=== PATIENT | female | born 1935 | race Caucasian/White ===

== ENCOUNTER 2018-10-06 21:39 | Inpatient (IN) | payer MEDICARE, OTHER ==
[2018-10-06] MEDS ORDERED: IPRATROPIUM/ALBUTEROL 0.5-2.5 MG/3 ML AMPUL NEB ONE (21:50)
[2018-10-06] MEDS ORDERED: METHYLPREDNISOLONE INJ 125 MG/2 ML SDV ONE (21:53)
[2018-10-06] MEDS: MAGNESIUM SULFATE/D5W 1 GM/100 ML RTUPB IV SCH ×2 (22:00→22:24)
[2018-10-06] MEDS ORDERED: MAGNESIUM SULFATE/D5W 2 GM/200 ML RTUPB IV ONE (22:03)
[2018-10-06 22:19] LABS: VENOUS BLOOD BASE EXCESS 1.8 mmol/L; VENOUS BLOOD HCO3 30.2 mmol/L (20-32); VENOUS BLOOD PH 7.28 (7.30-7.42)
[2018-10-06 22:21] LABS: ABSOLUTE BASOPHILS # (AUTO) 0.1 10^3/uL (0.0-0.2); ABSOLUTE EOSINOPHILS # (AUTO) 0.9 10^3/uL (0.0-0.6); ABSOLUTE LYMPHOCYTES (AUTO) 0.9 10^3/uL (0.5-4.7); ABSOLUTE MONOCYTES (AUTO) 0.9 10^3/uL (0.1-1.4); ABSOLUTE NEUT (AUTO) 7.9 10^3/uL (1.7-8.2); BASOPHILS % (AUTO) 0.8 % (0-2); EOSINOPHILS % (AUTO) 8.5 % (0-6); HEMATOCRIT 37.9 % (36.0-47.0); HEMOGLOBIN 12.4 g/dL (12.0-15.5); LYMPHOCYTES % (AUTO) 8.8 % (13-45); MEAN CORPUSCULAR HEMOGLOBIN 27.9 pg (27.0-33.4); MEAN CORPUSCULAR HGB CONC 32.8 g/dL (32.0-36.0); MEAN CORPUSCULAR VOLUME 85 fl (80-97); MONOCYTES % (AUTO) 8.4 % (3-13); PLATELET COUNT 307 10^3/uL (150-450); RED BLOOD COUNT 4.45 10^6/uL (3.72-5.28); RED CELL DISTRIBUTION WIDTH 15.7 % (11.5-14.0); SEGMENTED NEUTROPHILS % (AUTO) 73.5 % (42-78); TOTAL CELLS COUNTED % (AUTO) 100 %; WHITE BLOOD COUNT 10.7 10^3/uL (4.0-10.5)
[2018-10-06 22:21] LABS: VENOUS BLOOD PCO2 66.2 mmHg (35-63)
[2018-10-06 22:28] LABS: PROTHROMBIN TIME 12.6 SEC (11.4-15.4)
[2018-10-06 22:37] LABS: ALANINE AMINOTRANSFERASE 32 U/L (9-52); ALBUMIN 4.5 g/dL (3.5-5.0); ALKALINE PHOSPHATASE 105 U/L (38-126); ANION GAP 5 (5-19); ASPARTATE AMINO TRANSFERASE 41 U/L (14-36); BILIRUBIN,DIRECT 0.4 mg/dL (0.0-0.4); BILIRUBIN,TOTAL 0.4 mg/dL (0.2-1.3); BLOOD UREA NITROGEN 35 mg/dL (7-20); CALCIUM 9.5 mg/dL (8.4-10.2); CARBON DIOXIDE 33 mmol/L (22-30); CHLORIDE 102 mmol/L (98-107); GLUCOSE 139 mg/dL (75-110); POTASSIUM 4.9 mmol/L (3.6-5.0); SODIUM 140.4 mmol/L (137-145); TOTAL PROTEIN 7.2 g/dL (6.3-8.2)
--- NOTE | 2018-10-06 22:38 | RADIOLOGY REPORT (SQ) ---
EXAM DESCRIPTION: XR CHEST 1 VIEW COMPLETED DATE/TME: 10/06/2018 22:06 CLINICAL HISTORY: 82 years, Female, sob COMPARISON: None. NUMBER OF VIEWS: 1 TECHNIQUE: Portable chest LIMITATIONS: None. FINDINGS: Heart size normal. Mild atheromatous change thoracic aorta. Underlying emphysema. Calcified granuloma in the left upper lobe/apex. Lungs otherwise clear. No pneumothorax IMPRESSION: Underlying emphysema. No acute cardiopulmonary process copyright 2010 [employer]- All Rights Reserved
[2018-10-06 22:49] LABS: NT PRO BNP 691 pg/mL (<450)
[2018-10-06 22:50] LABS: TROPONIN I < 0.012 ng/mL
[2018-10-06] MEDS ORDERED: DOXYCYCLINE HYCLATE INJ 100 MG VIAL IV ONE (23:06)
[2018-10-06] MEDS ORDERED: MAGNESIUM HYDROXIDE SUSP 30 ML UDCUP PO PRN (23:22)
[2018-10-06] MEDS ORDERED: ONDANSETRON HCL INJ/PF 4 MG/2 ML SDV IV PRN (23:22)
[2018-10-06] MEDS ORDERED: MAG HYDROX/AL HYDROX/SIMETH SUSP 30 ML UDCUP PO PRN (23:22)
[2018-10-06] MEDS ORDERED: ONDANSETRON 4 MG TAB.RAPDIS PO PRN (23:22)
--- NOTE | 2018-10-06 23:24 | ER Document Report ---
ED General - General Chief Complaint: Shortness Of Breath Stated Complaint: DIFFICULTY BREATHING Time Seen by Provider: 10/06/18 21:55 TRAVEL OUTSIDE OF THE [place] IN LAST 30 DAYS: No - HPI Patient complains to provider of: Shortness of breath Notes: Patient coming in for evaluation of shortness of breath. 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 Patient recently moved to the area to be with her family family states patient does have oxygen as needed however has had a oxygen concentrator on most of the day. Denies any fevers or chills states scant production of sputum, no recent antibiotics. Upon my evaluation patient has subcostal retractions stating that she is having difficulty breathing patient currently has a breathing treatment ongoing patient otherwise is able to speak in complete sentences denies any chest pain abdominal pain - Related Data Allergies/Adverse Reactions: No Known Allergies Allergy (Unverified 10/06/18 22:14) Past Medical History - Social History Smoking Status: Unknown if Ever Smoked Family History: Reviewed & Not Pertinent Review of Systems - Review of Systems Constitutional: No symptoms reported EENT: No symptoms reported Cardiovascular: No symptoms reported Respiratory: Cough, Short of breath, Wheezing Gastrointestinal: No symptoms reported Genitourinary: No symptoms reported Female Genitourinary: No symptoms reported Musculoskeletal: No symptoms reported Skin: No symptoms reported Hematologic/Lymphatic: No symptoms reported Neurological/Psychological: No symptoms reported -: Yes All other systems reviewed and negative Physical Exam - Vital signs Vitals: Temp Pulse Resp BP Pulse Ox 98 F 107 H 32 H 187/120 H 88 L 10/06/18 21:40 10/06/18 21:40 10/06/18 21:40 10/06/18 21:40 10/06/18 21:40 Interpretation: Normal - General General appearance: Appears well, Alert - HEENT Head: Normocephalic, Atraumatic Eyes: Normal Pupils: PERRL - Respiratory Respiratory status: Tachypnea Chest status: Nontender Breath sounds: Wheezing Chest palpation: Normal - Cardiovascular Rhythm: Regular Heart sounds: Normal auscultation Murmur: No - Abdominal Inspection: Normal Distension: No distension Bowel sounds: Normal Tenderness: Nontender Organomegaly: No organomegaly - Back Back: Normal, Nontender - Extremities General upper extremity: Normal inspection, Nontender, Normal color, Normal ROM, Normal temperature General lower extremity: Normal inspection, Nontender, Normal color, Normal ROM, Normal temperature - Neurological Neuro grossly intact: Yes Cognition: Normal Orientation: AAOx4 Cameron Coma Scale Eye Opening: Spontaneous Ilnda Coma Scale Verbal: Oriented Cameron Coma Scale Motor: Obeys Commands Linda Coma Scale Total: 15 Speech: Normal Motor strength normal: LUE, RUE, LLE, RLE Sensory: Normal - Psychological Associated symptoms: Normal affect, Normal mood - Skin Skin Temperature: Warm Skin Moisture: Dry Skin Color: Normal Course - Re-evaluation Re-evalutation: 10/07/18 02:53 Laboratory studies show slight rest or acidosis with hypercapnia. Because of the continued work of breathing after the neb laser treatment patient was placed on BiPAP with significant improvement of her work of breathing. Patient also voiced that she was feeling better. Chest x-ray did not reveal any critical pathology such as pneumonia or pneumothorax. Patient case was referred to the hospitalist for further evaluation requesting doxycycline be given as antibiotic coverage. More likely patient has underlying COPD exacerbation possibly beg inning of bronchitis - Vital Signs Vital signs: Temp Pulse Resp BP Pulse Ox 98.1 F 101 H 22 H 147/66 H 100 10/07/18 01:00 10/07/18 02:00 10/07/18 01:00 10/07/18 01:00 10/07/18 01:00 - Laboratory Result Diagrams: 10/06/18 22:00 10/06/18 22:00 Laboratory results interpreted by me: 10/06/18 10/06/18 10/06/18 22:00 22:00 22:00 WBC 10.7 H RDW 15.7 H Lymphocytes % 8.8 L Eosinophils % 8.5 H Absolute Eosinophils 0.9 H VBG pH VBG pCO2 Carbon Dioxide 33 H BUN 35 H Est GFR (Non-Af Amer) 56 L Glucose 139 H POC Glucose Lactic Acid AST 41 H NT-Pro-B Natriuret Pep 691 H 10/06/18 10/06/18 10/06/18 22:03 22:10 22:10 WBC RDW Lymphocytes % Eosinophils % Absolute Eosinophils VBG pH 7.28 L VBG pCO2 66.2 H* Carbon Dioxide BUN Est GFR (Non-Af Amer) Glucose POC Glucose 139 H Lactic Acid 0.6 L AST NT-Pro-B Natriuret Pep Critical Care Note - Critical Care Note Total time excluding time spent on procedures (mins): 35 Comments: Multiple evaluation patient required BiPAP due to her acute on chronic respiratory distress Discharge - Discharge Clinical Impression: COPD exacerbation, Acute on chronic respiratory failure with hypercapnia Hypertension Qualifiers: Hypertension type: essential hypertension Qualified Code(s): I10 - Essential (primary) hypertension Condition: Good Disposition: ADMITTED INPATIENT Admitting Provider: [facility] Unit Admitted: Medical Floor
[2018-10-06] MEDS ORDERED: NICOTINE 21 MG/24 HR PATCH.TD24 TD PRN (23:27)
[2018-10-06] MEDS ORDERED: ALBUTEROL SULFATE 0.083% NEB 2.5 MG/3 ML AMPUL NEB PRN (23:27)
[2018-10-06] MEDS ORDERED: ACETAMINOPHEN 650 MG SUPP.RECT PR PRN (23:27)
--- NOTE | 2018-10-06 23:58 | EKG REPORT ---
SEVERITY:- ABNORMAL ECG - SINUS TACHYCARDIA PROBABLE LEFT ATRIAL ABNORMALITY PROBABLE LEFT VENTRICULAR HYPERTROPHY : Confirmed by: Alex Haddad 06-Oct-2018 23:58:01
[2018-10-06] MEDS ORDERED: DOXYCYCLINE HYCLATE 100 MG TABLET PO ONE (23:59)
--- NOTE | 2018-10-07 00:40 | PDOC H&P ---
History of Present Illness Admission Date/PCP: 10/06/2018 Patient complains of: Acute dyspnea History of Present Illness: ARCHANA DIMAS is a 82 year old female who presented to the emergency room with a 4-hour history of acute on chronic dyspnea. She admits a history of COPD and is on continuous O2 at 2 L/min per nasal cannula, but this evening after eating dinner she abruptly felt short of breath and could not join the family in viewing a movie on TV. She felt moderately to severely short of breath and began having a productive cough with thick yellow mucus being expectorated increased labor of breathing requiring use of her accessory muscles of respiration. She denies other associated symptoms but has had similar episodes on at least one occasion in the past when she was diagnosed with an acute exacerbation of her COPD and pneumonia. She did not try any remedies at home to improve her symptoms and she has not identified any aggravating or ameliorating factors for her dyspnea other than it is worsened with activity. Because of her acute presentation her family brought her to the emergency room for evaluation. In the emergency room she was found to have a minimally elevated white count at 10,700, acute on chronic respiratory failure with hypoxia and hypercapnia as wel l as a mild respiratory acidosis. She responded well to treatment with BiPAP and was subsequently admitted to the hospital for further evaluation and care. 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 Denies: Cataracts Neurological Medical History: Denies: Hemorrhagic CVA, Ischemic CVA, Seizures Endocrine Medical History: Denies: Diabetes Mellitus Type 1, Diabetes Mellitus Type 2, Obesity Renal/ Medical History: Denies: Chronic Kidney Disease, Nephrolithiasis Malignancy Medical History: Reports: Other - Oral pharyngeal cancer, uterine cancer GI Medical History: Denies: Cirrhosis, Hepatitis Musculoskeltal Medical History: Denies: Arthritis, Gout Skin Medical History: Denies: Eczema, Psoriasis Psychiatric Medical History: Denies: Alcohol Dependency, Substance Abuse, Tobacco Dependency Traumatic Medical History: Reports: None Hematology: Denies: Anemia, Bleeding Tendencies Infectious Medical History: Reports: None Past Surgical History Past Surgical History: Reports: Hysterectomy, Other - Oral pharyngeal surgery for cancer Social History Information Source: Patient Lives with: Family Smoking Status: Former Smoker Frequency of Alcohol Use: None Hx Recreational Drug Use: No Drugs: None Hx Prescription Drug Abuse: No - Advance Directive Resuscitation Status: Full Code Surrogate healthcare decision maker:: Maulik Tolentino Family History Family History: Other - Strokes Parental Family History Reviewed: Yes Children Family History Reviewed: No Sibling(s) Family History Reviewed.: Yes Medication/Allergy Home Medications: Amlodipine Besylate [Norvasc 2.5 mg Tablet] 2.5 mg PO DAILY 10/07/18 Atorvastatin Calcium [Lipitor 20 mg Tablet] 20 mg PO QHS 10/07/18 Clopidogrel Bisulfate [Plavix 75 mg Tablet] 75 mg PO DAILY 10/07/18 Ipratropium/Albuterol Sulfate [Duoneb 3 ml Ampul] 1 vial NEB TID 10/07/18 Levothyroxine Sodium [Synthroid] 125 mcg PO DAILY 10/07/18 Mirtazapine [Remeron 15 mg Tablet] 15 mg PO QHS 10/07/18 Sertraline HCl 100 mg PO DAILY 10/07/18 Allergies/Adverse Reactions: No Known Allergies Allergy (Unverified 10/06/18 22:14) Review of Systems Constitutional: PRESENT: headache(s) - Earlier in the day. ABSENT: chills, fever(s) Eyes: ABSENT: visual disturbances, other - Ocular pain Ears: ABSENT: hearing changes, other - Ear pain Nose, Mouth, and Throat: ABSENT: mouth pain, sore throat Cardiovascular: PRESENT: as per HPI, dyspnea on exertion. ABSENT: chest pain, edema, orthropnea, palpitations Respiratory: PRESENT: as per HPI, cough, dyspnea, sputum - Thick yellow sputum in moderate to copious amounts. ABSENT: hemoptysis Gastrointestinal: ABSENT: abdominal pain, constipation, diarrhea, nausea, vomiting Genitourinary: ABSENT: dysuria, hematuria Musculoskeletal: PRESENT: back pain - Occasional last treated a few weeks ago. ABSENT: deformity, joint swelling Integumentary: ABSENT: pruritus, rash Neurological: ABSENT: confusion, convulsions, memory loss, syncope, tremor(s), vertigo Psychiatric: ABSENT: anxiety, depression Endocrine: ABSENT: cold intolerance, heat intolerance Hematologic/Lymphatic: ABSENT: easy bleeding, easy bruising Physical Exam Vital Signs: Temp Pulse Resp BP Pulse Ox 98 F 32 L 23 H 125/54 L 99 10/06/18 21:41 10/06/18 21:41 10/06/18 22:46 10/06/18 22:46 10/06/18 22:46 Intake & Output 10/04/18 10/05/18 10/06/18 23:59 23:59 23:59 Intake Total 140 Balance 140 Weight 37.195 kg General appearance: PRESENT: cooperative, mild distress - Mild respiratory distress, thin - Severe malnutrition, other - On BiPAP Head exam: ABSENT: atraumatic, normocephalic Eye exam: PRESENT: EOMI. ABSENT: conjunctival injection, scleral icterus Ear exam: PRESENT: normal external ear exam. ABSENT: bleeding, drainage Mouth exam: PRESENT: dry mucosa, neck supple, tongue midline Neck exam: ABSENT: JVD, thyromegaly, tracheal deviation Respiratory exam: PRESENT: accessory muscle use - Moderate use of accessory muscles with supraclavicular and subclavicular retractions, decreased breath sounds - Mild to moderately decreased breath sounds throughout all perry, prolonged expiratory phas - Moderately prolonged expiratory phase, rhonchi - Coarse central rhonchi noted clearing in part with cough, symmetrical, wheezes - Mild end expiratory wheezes in all perry. ABSENT: rales Cardiovascular exam: PRESENT: RRR, systolic murmur - 3/6 systolic murmur heard best at the apex radiating to the axilla. ABSENT: clicks, gallop, rubs Pulses: PRESENT: normal radial pulses, normal dorsalis pedis pul Vascular exam: PRESENT: normal capillary refill. ABSENT: pallor GI/Abdominal exam: PRESENT: normal bowel sounds, soft Rectal exam: PRESENT: deferred Extremities exam: ABSENT: joint swelling, pedal edema Musculoskeletal exam: ABSENT: deformity, dislocation, tenderness Neurological exam: PRESENT: alert, oriented to person, oriented to place, oriented to time, oriented to situation, CN II-XII grossly intact. ABSENT: motor sensory deficit Psychiatric exam: PRESENT: appropriate affect, normal mood Skin exam: PRESENT: dry, intact, warm. ABSENT: jaundice, rash, urticaria Results Laboratory Results: 10/06/18 22:00 10/06/18 22:00 10/06/18 10/06/18 10/06/18 22:00 22:00 22:00 WBC 10.7 H RBC 4.45 Hgb 12.4 Hct 37.9 MCV 85 MCH 27.9 MCHC 32.8 RDW 15.7 H Plt Count 307 Seg Neutrophils % 73.5 Lymphocytes % 8.8 L Monocytes % 8.4 Eosinophils % 8.5 H Basophils % 0.8 Absolute Neutrophils 7.9 Absolute Lymphocytes 0.9 Absolute Monocytes 0.9 Absolute Eosinophils 0.9 H Absolute Basophils 0.1 VBG pH VBG pCO2 VBG HCO3 VBG Base Excess Sodium 140.4 Potassium 4.9 Chloride 102 Carbon Dioxide 33 H Anion Gap 5 BUN 35 H Creatinine 0.95 Est GFR ( Amer) > 60 Est GFR (Non-Af Amer) 56 L Glucose 139 H Lactic Acid Calcium 9.5 Magnesium 2.1 Total Bilirubin 0.4 AST 41 H ALT 32 Alkaline Phosphatase 105 Total Protein 7.2 Albumin 4.5 Lipase 146.6 10/06/18 10/06/18 22:10 22:10 WBC RBC Hgb Hct MCV MCH MCHC RDW Plt Count Seg Neutrophils % Lymphocytes % Monocytes % Eosinophils % Basophils % Absolute Neutrophils Absolute Lymphocytes Absolute Monocytes Absolute Eosinophils Absolute Basophils VBG pH 7.28 L VBG pCO2 66.2 H* VBG HCO3 30.2 VBG Base Excess 1.8 Sodium Potassium Chloride Carbon Dioxide Anion Gap BUN Creatinine Est GFR ( Amer) Est GFR (Non-Af Amer) Glucose Lactic Acid 0.6 L Calcium Magnesium Total Bilirubin AST ALT Alkaline Phosphatase Total Protein Albumin Lipase 10/06/18 22:00 Troponin I < 0.012 NT-Pro-B Natriuret Pep 691 H Impressions: Chest X-Ray 10/06/18 22:06 IMPRESSION: Underlying emphysema. No acute cardiopulmonary process copyright 2011 [employer]- All Rights Reserved Assessment & Plan - Diagnosis (1) COPD exacerbation Is this a current diagnosis for this admission?: Yes Plan: Patient will be treated with an aggressive pulmonary toilet utilizing Xopenex, Atrovent, Mucomyst, Pulmicort and albuterol. Additionally she will be treated with intravenous steroids and oxygen supplementation/BiPAP as required. She will be started on doxycycline 100 mg p.o. daily for broad-spectrum antibiotic coverage for her COPD exacerbation. (2) Acute on chronic respiratory failure with hypercapnia Is this a current diagnosis for this admission?: Yes Plan: Patient is being treated with BiPAP and will be closely monitored throughout her hospital course for resolution of her acute phase of her respiratory failure with hypoxia and hypercapnia. BiPAP will be discontinued as soon as possible when the patient can tolerate respiratory support with just supplemental oxygen. (3) Hypertension Qualifiers: Hypertension type: essential hypertension Qualified Code(s): I10 - Essential (primary) hypertension Is this a current diagnosis for this admission?: Yes Plan: Patient will be continued on her current antihypertensive regiment during her hospital course. A basic metabolic profile will be obtained on a regular basis and her blood pressure will be determined with vital signs on a regular basis. Adjustments to therapy will be made as needed. (4) Severe protein-calorie malnutrition Is this a current diagnosis for this admission?: Yes Plan: Dietary consultation for supplemental feeding and treatment recommendations. - Time Time Spent: 30 to 50 Minutes Critical Time spent with patient: Less than 15 minutes Medications reviewed and adjusted accordingly: Yes Anticipated discharge: Home, Home with Homehealth - Inpatient Certification Based on my medical assessment, after consideration of the patient's comorbidities, presenting symptoms, or acuity I expect that the services needed warrant INPATIENT care.: Yes I certify that my determination is in accordance with my understanding of Medicare's requirements for reasonable and necessary INPATIENT services [42 CFR 412.3e].: Yes Medical Necessity: Need Close Monitoring Due to Risk of Patient Decompensation, Need for Nebulizer Therapy and Monitoring of Response, Risk of Complication if Not Cared For in Hospital
[2018-10-07] MEDS: LEVALBUTEROL HCL NEB 1.25 MG/3 ML AMPUL NEB SCH ×4 (00:51→23:41)
[2018-10-07] MEDS: IPRATROPIUM BROMIDE 0.02% NEB 0.5 MG/2.5 ML AMPUL NEB SCH ×4 (00:51→23:41)
[2018-10-07] MEDS: ACETAMINOPHEN 325 MG TABLET PO PRN ×2 (01:33→10:11)
[2018-10-07] MEDS: METHYLPREDNISOLONE INJ 40 MG/1 ML SDV IV SCH ×3 (03:12→14:50)
[2018-10-07 04:45] LABS: HEMATOCRIT 33.8 % (36.0-47.0); HEMOGLOBIN 11.2 g/dL (12.0-15.5); MEAN CORPUSCULAR HGB CONC 33.1 g/dL (32.0-36.0); MEAN CORPUSCULAR VOLUME 84 fl (80-97); PLATELET COUNT 247 10^3/uL (150-450); RED BLOOD COUNT 4.01 10^6/uL (3.72-5.28); RED CELL DISTRIBUTION WIDTH 14.9 % (11.5-14.0); WHITE BLOOD COUNT 8.2 10^3/uL (4.0-10.5)
[2018-10-07 05:08] LABS: ANION GAP 6 (5-19); BLOOD UREA NITROGEN 33 mg/dL (7-20); CALCIUM 9.4 mg/dL (8.4-10.2); CARBON DIOXIDE 31 mmol/L (22-30); CHLORIDE 102 mmol/L (98-107); GLUCOSE 201 mg/dL (75-110); SODIUM 139.4 mmol/L (137-145)
[2018-10-07 05:16] LABS: ABSOLUTE LYMPHOCYTES# (MANUAL) 0.2 10^3/uL (0.5-4.7); BASOPHILS % (MANUAL) 1 % (0-2); EOSINOPHILS % (MANUAL) 0 % (0-6); LYMPHOCYTES % (MANUAL) 1 % (13-45); MONOCYTES % (MANUAL) 0 % (3-13); SEGMENTED NEUTROPHILS % (MAN) 97 % (42-78); TOTAL CELLS COUNTED 100
[2018-10-07 05:18] LABS: FREE T3 3.23 pg/mL (2.77-5.27); FREE T4 (FREE THYROXINE) 1.61 ng/dL (0.78-2.19)
[2018-10-07 05:19] LABS: TOXIC GRANULATION 2+
[2018-10-07 05:20] LABS: ANISOCYTOSIS SLIGHT; HYPOCHROMASIA SLIGHT; PLATELET CLUMPS PRESENT; PLATELET COMMENT ADEQUATE; POIKILOCYTOSIS SLIGHT; SCHISTOCYTES SLIGHT
[2018-10-07 05:31] LABS: THYROID STIMULATING HORMONE 0.07 uIU/mL (0.47-4.68)
[2018-10-07] MEDS: HEPARIN SOD (PORCINE) 5,000 UNIT/ML 1 ML SYRINGE SUBCUT SCH ×3 (05:38→21:08)
[2018-10-07] MEDS: LANSOPRAZOLE 15 MG TAB.RAP.DR PO SCH (05:38)
--- NOTE | 2018-10-07 08:06 | PDOC PROGRESS REPORT ---
Subjective Progress Note for:: 10/07/18 Subjective:: 82-year-old female with history of COPD on home oxygen liters via nasal cannula came to the emergency room with the sudden onset of shortness of breath she is try to use the nebulizers and inhalers at home did not help came to the emergency room for further evaluation. In the emergency room the she was placed on BiPAP for acute on chronic respiratory failure with hypoxia and hypercapnia. The VBG was done in the ER it shows PCO2 of 66. Acute events overnight. She is on on nasal cannula right now pulse ox is 92% on 2 L. She did not have to use any BiPAP last night. Reason For Visit: ACUTE EXACERBATION OF COPD Physical Exam Vital Signs: Temp Pulse Resp BP Pulse Ox 97.1 F 88 16 116/56 L 100 10/07/18 07:42 10/07/18 07:42 10/07/18 07:42 10/07/18 07:42 10/07/18 07:42 Intake & Output 10/06/18 10/07/18 10/08/18 06:59 06:59 06:59 Intake Total 377 Output Total 0 Balance 377 Weight 39 kg General appearance: PRESENT: no acute distress, other - Very thin cachectic female. Head exam: PRESENT: atraumatic Eye exam: PRESENT: PERRLA Mouth exam: PRESENT: dry mucosa Neck exam: ABSENT: carotid bruit, JVD, lymphadenopathy, thyromegaly Respiratory exam: PRESENT: decreased breath sounds, prolonged expiratory phas, other - Bilateral air entry was symmetrically decreased in both lung perry secondary to COPD.. ABSENT: rales, wheezes Cardiovascular exam: PRESENT: RRR. ABSENT: diastolic murmur, rubs, systolic murmur GI/Abdominal exam: PRESENT: normal bowel sounds, soft. ABSENT: distended, guarding, mass, organolmegaly, rebound, tenderness Neurological exam: PRESENT: alert, awake, oriented to person, oriented to place, oriented to time, oriented to situation, CN II-XII grossly intact. ABSENT: motor sensory deficit Psychiatric exam: PRESENT: appropriate affect, normal mood. ABSENT: homicidal ideation, suicidal ideation Results Laboratory Results: 10/07/18 04:00 10/07/18 04:00 10/06/18 10/06/18 10/06/18 22:00 22:00 22:00 WBC 10.7 H RBC 4.45 Hgb 12.4 Hct 37.9 MCV 85 MCH 27.9 MCHC 32.8 RDW 15.7 H Plt Count 307 Seg Neutrophils % 73.5 Lymphocytes % 8.8 L Monocytes % 8.4 Eosinophils % 8.5 H Basophils % 0.8 Absolute Neutrophils 7.9 Absolute Lymphocytes 0.9 Absolute Monocytes 0.9 Absolute Eosinophils 0.9 H Absolute Basophils 0.1 VBG pH VBG pCO2 VBG HCO3 VBG Base Excess Sodium 140.4 Potassium 4.9 Chloride 102 Carbon Dioxide 33 H Anion Gap 5 BUN 35 H Creatinine 0.95 Est GFR ( Amer) > 60 Est GFR (Non-Af Amer) 56 L Glucose 139 H Lactic Acid Calcium 9.5 Magnesium 2.1 Total Bilirubin 0.4 AST 41 H ALT 32 Alkaline Phosphatase 105 Total Protein 7.2 Albumin 4.5 Lipase 146.6 TSH Free T4 Free T3 pg/mL 10/06/18 10/06/18 10/07/18 22:10 22:10 04:00 WBC 8.2 RBC 4.01 Hgb 11.2 L Hct 33.8 L MCV 84 MCH 28.0 MCHC 33.1 RDW 14.9 H Plt Count 247 Seg Neutrophils % Not Reportable Lymphocytes % Not Reportable Monocytes % Not Reportable Eosinophils % Not Reportable Basophils % Not Reportable Absolute Neutrophils Not Reportable Absolute Lymphocytes Not Reportable Absolute Monocytes Not Reportable Absolute Eosinophils Not Reportable Absolute Basophils Not Reportable VBG pH 7.28 L VBG pCO2 66.2 H* VBG HCO3 30.2 VBG Base Excess 1.8 Sodium Potassium Chloride Carbon Dioxide Anion Gap BUN Creatinine Est GFR ( Amer) Est GFR (Non-Af Amer) Glucose Lactic Acid 0.6 L Calcium Magnesium Total Bilirubin AST ALT Alkaline Phosphatase Total Protein Albumin Lipase TSH Free T4 Free T3 pg/mL 10/07/18 10/07/18 04:00 04:00 WBC RBC Hgb Hct MCV MCH MCHC RDW Plt Count Seg Neutrophils % Lymphocytes % Monocytes % Eosinophils % Basophils % Absolute Neutrophils Absolute Lymphocytes Absolute Monocytes Absolute Eosinophils Absolute Basophils VBG pH VBG pCO2 VBG HCO3 VBG Base Excess Sodium 139.4 Potassium 5.0 Chloride 102 Carbon Dioxide 31 H Anion Gap 6 BUN 33 H Creatinine 0.95 Est GFR ( Amer) > 60 Est GFR (Non-Af Amer) 56 L Glucose 201 H Lactic Acid Calcium 9.4 Magnesium 3.0 H Total Bilirubin AST ALT Alkaline Phosphatase Total Protein Albumin Lipase TSH 0.07 L Free T4 1.61 Free T3 pg/mL 3.23 10/06/18 22:00 Troponin I < 0.012 NT-Pro-B Natriuret Pep 691 H Impressions: Chest X-Ray 10/06/18 22:06 IMPRESSION: Underlying emphysema. No acute cardiopulmonary process copyright 2010 [employer]- All Rights Reserved Assessment & Plan - Diagnosis (1) Acute on chronic respiratory failure with hypercapnia Is this a current diagnosis for this admission?: Yes Plan: Patient is being treated with BiPAP and will be closely monitored throughout her hospital course for resolution of her acute phase of her respiratory failure with hypoxia and hypercapnia. BiPAP will be discontinued as soon as possible when the patient can tolerate respiratory support with just supplemental oxygen. 10/07/2018-patient was placed on BiPAP in the emergency room at the time of admission. After came to the medical floor patient is on 2 L nasal cannula on pulse ox's are more than 90. Repeat the ABG today. Probably patient may not need any BiPAP today but we are going to use it as needed basis. (2) COPD exacerbation Is this a current diagnosis for this admission?: Yes Plan: Patient will be treated with an aggressive pulmonary toilet utilizing Xopenex, Atrovent, Mucomyst, Pulmicort and albuterol. Additionally she will be treated with intravenous steroids and oxygen supplementation/BiPAP as required. She will be started on doxycycline 100 mg p.o. daily for broad-spectrum antibiotic coverage for her COPD exacerbation. 10/07/2018-patient is getting aggressive treatment for COPD exacerbation on IV Solu-Medrol, as needed BiPAP, Xopenex and albuterol nebulizations along with Atrovent and Mucomyst and Pulmicort. On examination today chest bilateral entry was severely decreased but no wheezing no rhonchi present. (3) Hypertension Qualifiers: Hypertension type: essential hypertension Qualified Code(s): I10 - Essential (primary) hypertension Is this a current diagnosis for this admission?: Yes Plan: 10/07/2018-patient blood pressure today is 116/56. Patient is on amlodipine 2.5 mgdaily at home. Amlodipine was restarted today. (4) Severe protein-calorie malnutrition Is this a current diagnosis for this admission?: Yes Plan: 10/07/2018-patient weight is 39 nightly. Dietary consult was requested for protein calorie malnutrition. I am going to order for Ensure 1 can 3 times daily. - Time Time Spent with patient: 15-24 minutes Smoking Cessation Education: 3 to 10 minutes Medications reviewed and adjusted accordingly: Yes Anticipated discharge: Home
[2018-10-07] MEDS: ACETYLCYSTEINE 20% SOLN 800 MG/4 ML VIAL.NEB NEB SCH ×2 (09:02→20:36)
[2018-10-07] MEDS: BUDESONIDE NEB 0.5 MG/2 ML AMPUL NEB SCH ×2 (09:02→20:36)
[2018-10-07] MEDS ORDERED: IPRATROPIUM/ALBUTEROL 0.5-2.5 MG/3 ML AMPUL NEB SCH (10:00)
[2018-10-07] MEDS ORDERED: (PENDING PHARMACY ID) (Levothyroxine Sodium [Synthroid] 125 MCG) PO SCH (10:00)
[2018-10-07] MEDS: SERTRALINE HCL 50 MG TABLET PO SCH (10:12)
[2018-10-07] MEDS: CLOPIDOGREL BISULFATE 75 MG TABLET PO SCH (10:12)
[2018-10-07] MEDS: AMLODIPINE BESYLATE 2.5 MG TABLET PO SCH (10:13)
[2018-10-07] MEDS: DOCUSATE SODIUM 100 MG CAPSULE PO SCH ×2 (10:13→17:52)
[2018-10-07 11:58] LABS: ARTERIAL BLOOD BASE EXCESS 1.7 mmol/L; ARTERIAL BLOOD FIO2 3L; ARTERIAL BLOOD H2CO3 1.39 mmol/L (1.05-1.35); ARTERIAL BLOOD HCO3 27.2 mmol/L (20-24); ARTERIAL BLOOD O2 SATURATION 97.7 % (94-98); ARTERIAL BLOOD PCO2 46.1 mmHg (35-45); ARTERIAL BLOOD PH 7.39 (7.35-7.45); ARTERIAL BLOOD PO2 103.6 mmHg (80-100); ARTERIAL BLOOD TOTAL CO2 28.6 mmol/L (21-25)
[2018-10-07 12:41] LABS: APPEARANCE,URINE CLEAR; BILIRUBIN,URINE NEGATIVE (NEGATIVE); COLOR,URINE YELLOW; GLUCOSE, URINE NEGATIVE (NEGATIVE); KETONES,URINE NEGATIVE (NEGATIVE); LEUKOCYTE ESTERASE,URINE NEGATIVE (NEGATIVE); NITRITE,URINE NEGATIVE (NEGATIVE); PROTEIN,URINE 100 mg/dL (NEGATIVE); URINE SPECIFIC GRAVITY 1.021; UROBILINOGEN,URINE NEGATIVE mg/dL (<2.0)
[2018-10-07] MEDS ORDERED: ATORVASTATIN CALCIUM 20 MG TABLET PO SCH (22:00)
[2018-10-07] MEDS ORDERED: MIRTAZAPINE 15 MG TABLET PO SCH (22:00)
[2018-10-07] MEDS ORDERED: DOXYCYCLINE HYCLATE 100 MG TABLET PO SCH (22:00)
[2018-10-08 05:11] LABS: ABSOLUTE LYMPHOCYTES (AUTO) 0.9 10^3/uL (0.5-4.7); ABSOLUTE MONOCYTES (AUTO) 0.8 10^3/uL (0.1-1.4); ABSOLUTE NEUT (AUTO) 8.8 10^3/uL (1.7-8.2); BASOPHILS % (AUTO) 0.1 % (0-2); EOSINOPHILS % (AUTO) 0.1 % (0-6); HEMATOCRIT 34.7 % (36.0-47.0); HEMOGLOBIN 11.7 g/dL (12.0-15.5); LYMPHOCYTES % (AUTO) 8.6 % (13-45); MEAN CORPUSCULAR HEMOGLOBIN 28.2 pg (27.0-33.4); MEAN CORPUSCULAR HGB CONC 33.6 g/dL (32.0-36.0); MEAN CORPUSCULAR VOLUME 84 fl (80-97); MONOCYTES % (AUTO) 7.5 % (3-13); PLATELET COUNT 239 10^3/uL (150-450); RED BLOOD COUNT 4.14 10^6/uL (3.72-5.28); RED CELL DISTRIBUTION WIDTH 15.3 % (11.5-14.0); SEGMENTED NEUTROPHILS % (AUTO) 83.7 % (42-78); TOTAL CELLS COUNTED % (AUTO) 100 %; WHITE BLOOD COUNT 10.5 10^3/uL (4.0-10.5)
[2018-10-08 05:34] LABS: ANION GAP 5 (5-19); BLOOD UREA NITROGEN 35 mg/dL (7-20); CALCIUM 9.4 mg/dL (8.4-10.2); CARBON DIOXIDE 32 mmol/L (22-30); CHLORIDE 103 mmol/L (98-107); GLUCOSE 103 mg/dL (75-110); POTASSIUM 4.6 mmol/L (3.6-5.0); SODIUM 139.8 mmol/L (137-145)
[2018-10-08] MEDS ORDERED: LEVOTHYROXINE SODIUM 0.05 MG TABLET PO SCH (06:00)
[2018-10-08] MEDS: HEPARIN SOD (PORCINE) 5,000 UNIT/ML 1 ML SYRINGE SUBCUT SCH (06:14)
[2018-10-08] MEDS: LANSOPRAZOLE 15 MG TAB.RAP.DR PO SCH (06:14)
[2018-10-08] MEDS: ACETYLCYSTEINE 20% SOLN 800 MG/4 ML VIAL.NEB NEB SCH (08:24)
[2018-10-08] MEDS: LEVALBUTEROL HCL NEB 1.25 MG/3 ML AMPUL NEB SCH (08:24)
[2018-10-08] MEDS: IPRATROPIUM BROMIDE 0.02% NEB 0.5 MG/2.5 ML AMPUL NEB SCH (08:24)
[2018-10-08] MEDS: BUDESONIDE NEB 0.5 MG/2 ML AMPUL NEB SCH (08:24)
[2018-10-08] MEDS: DOCUSATE SODIUM 100 MG CAPSULE PO SCH (09:04)
[2018-10-08] MEDS: CLOPIDOGREL BISULFATE 75 MG TABLET PO SCH (09:04)
[2018-10-08] MEDS ORDERED: ONDANSETRON HCL INJ/PF 4 MG/2 ML SDV IV PRN (10:00)
[2018-10-08] MEDS ORDERED: METOPROLOL TARTRATE 25 MG TABLET PO SCH (10:00)
[2018-10-08] MEDS ORDERED: FLUTICASONE NASAL SPRAY 50 MCG/SPRY 120 SPRAY/16 GM NASL SCH (10:00)
[2018-10-08] MEDS ORDERED: ALPRAZOLAM 0.5 MG TABLET PO SCH (10:00)
[2018-10-08 10:40] VITALS: BP 187/120
[2018-10-08] MEDS: AMLODIPINE BESYLATE 2.5 MG TABLET PO SCH (10:56)
[2018-10-08] MEDS: SERTRALINE HCL 50 MG TABLET PO SCH (10:56)
--- NOTE | 2018-10-08 12:15 | Physician Advisory Note ---
Physician Advisor ProgressNote .: Pursuant to the plan for Klaus Ybarra, I have reviewed the medical record for this patient. Physician Advisor Statement: Very nice documentation of findings supporting Ac on chr hypercapneic/hypoxemic Resp Failure, & COPD exac. Please document: 1. Findings that support dx of severe malnutrition: Does she have decreased muscle mass (mild/mod/sev)? Decreased subcut fat (mild/mod/sev)? Noticeably decreased hand disability rater strength? ... Amt wt loss (from __ to __ over __ months)= Also, please document BMI (15.5) Thanks! CK
--- NOTE | 2018-10-08 13:21 | PDOC DISCHARGE SUMMARY ---
General - Admit/Disc Date/PCP Admission Date/Primary Care Provider: 10/06/18 23:43 Discharge Date: 10/08/18 - Discharge Diagnosis (1) Acute on chronic respiratory failure with hypercapnia Is this a current diagnosis for this admission?: Yes Summary: Patient will be treated with an aggressive pulmonary toilet utilizing Xopenex, Atrovent, Mucomyst, Pulmicort and albuterol. Additionally she will be treated with intravenous steroids and oxygen supplementation/BiPAP as required. She will be started on doxycycline 100 mg p.o. daily for broad-spectrum antibiotic coverage for her COPD exacerbation. 10/07/2018-patient was placed on BiPAP in the emergency room at the time of admission. After came to the medical floor patient is on 2 L nasal cannula on pulse ox's are more than 90. Repeat the ABG today. Probably patient may not need any BiPAP today but we are going to use it as needed basis. 10/08/2018-since the admission patient does not how to use the BiPAP. Pulse ox's are 94-96% on 2 L. Patient was aggressively treated with IV Solu-Medrol Xopenex and Atrovent Mucomyst and Pulmicort in association with albuterol. In my opinion patient is stable enough to go back home. Patient was advised to continue home oxygen 2 L via nasal cannula. (2) COPD exacerbation Is this a current diagnosis for this admission?: Yes Summary: Patient will be treated with an aggressive pulmonary toilet utilizing Xopenex, Atrovent, Mucomyst, Pulmicort and albuterol. Additionally she will be treated with intravenous steroids and oxygen supplementation/BiPAP as required. She will be started on doxycycline 100 mg p.o. daily for broad-spectrum antibiotic coverage for her COPD exacerbation. 10/07/2018-patient is getting aggressive treatment for COPD exacerbation on IV Solu-Medrol, as needed BiPAP, Xopenex and albuterol nebulizations along with Atrovent and Mucomyst and Pulmicort. On examination today chest bilateral entry was severely decreased but no wheezing no rhonchi present. 10/08/2018-patient was admitted for COPD exacerbation she is on 2 L oxygen at home. COPD exacerbation is resolved patient is stable enough to go home. (3) Hypertension Is this a current diagnosis for this admission?: Yes Summary: 10/07/2018-patient blood pressure today is 116/56. Patient is on amlodipine 2.5 mgdaily at home. Amlodipine was restarted today. 10/08/2018-the blood pressure today is 139/65. Stable. Patient was advised to continue amlodipine 2.5 mg once she goes home. Is also advised to follow-up with primary care physician in 5-7 days. (4) Severe protein-calorie malnutrition Is this a current diagnosis for this admission?: Yes Summary: 10/07/2018-patient weight is 39 kg. Dietary consult was requested for protein calorie malnutrition. I am going to order for Ensure 1 can 3 times daily. 10/08/2018 patient weight is 39 cages. On examination she has a moderate decrease in muscle mass. Also moderate decrease in subcutaneous fat. 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 The amount of weight loss over the last weeks or months is unknown. Dietary consult was done. - Additional Information Resuscitation Status: Full Code Discharge Diet: Cardiac Discharge Activity: Activity As Tolerated Prescriptions: Doxycycline Hyclate [Vibramycin 100 mg Tablet] 100 mg PO QHS #5 tablet Home Medications: Alprazolam [Xanax 0.5 mg Tablet] 0.5 mg PO DAILY 10/07/18 Amlodipine Besylate [Norvasc 2.5 mg Tablet] 2.5 mg PO DAILY 10/07/18 Atorvastatin Calcium [Lipitor 20 mg Tablet] 20 mg PO QHS 10/07/18 Clopidogrel Bisulfate [Plavix 75 mg Tablet] 75 mg PO DAILY 10/07/18 Fluticasone Propionate [Flonase Nasal [place] 50 Mcg/[place] 16 gm] 1 spray NASL DAILY 10/07/18 Ipratropium/Albuterol Sulfate [Duoneb 3 ml Ampul] 3 ml NEB Q6 10/07/18 Levothyroxine Sodium [Synthroid] 125 mcg PO Q6AM 10/07/18 Metoprolol Tartrate [Lopressor 25 mg Tablet] 25 mg PO Q12 10/07/18 Mirtazapine [Remeron 15 mg Tablet] 15 mg PO QHS 10/07/18 Sertraline HCl [Zoloft] 100 mg PO DAILY 10/07/18 Amlodipine Besylate [Norvasc 2.5 mg Tablet] 2.5 mg PO DAILY tablet 10/08/18 Atorvastatin Calcium [Lipitor 20 mg Tablet] 20 mg PO QHS tablet 10/08/18 Clopidogrel Bisulfate [Plavix 75 mg Tablet] 75 mg PO DAILY tablet 10/08/18 Doxycycline Hyclate [Vibramycin 100 mg Tablet] 100 mg PO QHS #5 tablet 10/08/18 History of Present Illness History of Present Illness: ARCHANA DIMAS is a 82 year old female Hospital Course Hospital Course: who presented to the emergency room with a 4-hour history of acute on chronic dyspnea. She admits a history of COPD and is on continuous O2 at 2 L/min per nasal cannula, but this evening after eating dinner she abruptly felt short of breath and could not join the family in viewing a movie on TV. She felt moderately to severely short of breath and began having a productive cough with thick yellow mucus being expectorated increased labor of breathing requiring use of her accessory muscles of respiration. She denies other associated symptoms b ut has had similar episodes on at least one occasion in the past when she was diagnosed with an acute exacerbation of her COPD and pneumonia. She did not try any remedies at home to improve her symptoms and she has not identified any aggravating or ameliorating factors for her dyspnea other than it is worsened with activity. Because of her acute presentation her family brought her to the emergency room for evaluation. In the emergency room she was found to have a minimally elevated white count at 10,700, acute on chronic respiratory failure with hypoxia and hypercapnia as well as a mild respiratory acidosis. She responded well to treatment with BiPAP and was subsequently admitted to the hospital for further evaluation and care. Physical Exam Vital Signs: Temp Pulse Resp BP Pulse Ox 98.0 F 86 16 187/120 H 98 10/08/18 10:39 10/08/18 10:39 10/08/18 10:39 10/08/18 10:39 10/08/18 10:39 Intake & Output 10/07/18 10/08/18 10/09/18 06:59 06:59 06:59 Intake Total 377 200 Output Total 0 200 Balance 377 0 Weight 39 kg 38.4 kg General appearance: PRESENT: no acute distress Head exam: PRESENT: atraumatic Eye exam: PRESENT: PERRLA Mouth exam: PRESENT: moist Neck exam: ABSENT: carotid bruit, JVD, lymphadenopathy, thyromegaly Respiratory exam: PRESENT: decreased breath sounds Cardiovascular exam: PRESENT: RRR. ABSENT: diastolic murmur, rubs, systolic murmur GI/Abdominal exam: PRESENT: normal bowel sounds, soft. ABSENT: distended, guarding, mass, organolmegaly, rebound, tenderness Neurological exam: PRESENT: alert, awake, oriented to person, oriented to place, oriented to time, oriented to situation, CN II-XII grossly intact. ABSENT: motor sensory deficit Psychiatric exam: PRESENT: appropriate affect, normal mood. ABSENT: homicidal ideation, suicidal ideation Results Laboratory Results: 10/08/18 04:18 10/08/18 04:18 10/08/18 10/08/18 04:18 04:18 WBC 10.5 RBC 4.14 Hgb 11.7 L Hct 34.7 L MCV 84 MCH 28.2 MCHC 33.6 RDW 15.3 H Plt Count 239 Seg Neutrophils % 83.7 H Lymphocytes % 8.6 L Monocytes % 7.5 Eosinophils % 0.1 Basophils % 0.1 Absolute Neutrophils 8.8 H Absolute Lymphocytes 0.9 Absolute Monocytes 0.8 Absolute Eosinophils 0.0 Absolute Basophils 0.0 Sodium 139.8 Potassium 4.6 Chloride 103 Carbon Dioxide 32 H Anion Gap 5 BUN 35 H Creatinine 1.05 Est GFR ( Amer) > 60 Est GFR (Non-Af Amer) 50 L Glucose 103 Calcium 9.4 Magnesium 2.6 H 10/08/18 09:10 Sputum Gram Stain - Final 10/08/18 09:10 Sputum Sputum Culture - Final 10/06/18 22:00 Troponin I < 0.012 NT-Pro-B Natriuret Pep 691 H Impressions: Chest X-Ray 10/06/18 22:06 IMPRESSION: Underlying emphysema. No acute cardiopulmonary process copyright 2011 [employer]- All Rights Reserved Qualifiers - * PATIENT BEING DISCHARGED WITH ANY OF THE FOLLOWING DIAGNOSIS: No VTE patient discharged on overlapping Therapy?: Yes
[2018-10-09] MEDS ORDERED: LANSOPRAZOLE 15 MG TAB.RAP.DR PO SCH (06:00)
[2018-10-09] MEDS ORDERED: (PENDING PHARMACY ID) (Levothyroxine Sodium [Synthroid] 125 MCG) PO SCH (06:00)
== END 2018-10-08 11:43 | disposition home or self-care (01) | DRG 208 ==
LOC: ER 21:39 → EH 23:43 → 3N 10-07 00:40
PROVIDERS: ADMIT Emergency Medicine; ATTEND Emergency Medicine
PROC: 5A1945Z Respiratory Ventilation, 24-96 Consecutive Hours (ICD-10-PCS; principal; 2018-10-06)
PROC: 3E0F73Z Introduction of Anti-inflammatory into Respiratory Tract, Via Natural or Artificial Opening (ICD-10-PCS; 2018-10-06)
DX: J44.1 Chronic obstructive pulmonary disease with (acute) exacerbation (principal); J96.22 Acute and chronic respiratory failure with hypercapnia; E43 Unspecified severe protein-calorie malnutrition; Z68.1 Body mass index [BMI] 19.9 or less, adult; I10 Essential (primary) hypertension; Z79.899 Other long term (current) drug therapy; Z99.81 Dependence on supplemental oxygen; Z85.819 Personal history of malignant neoplasm of unspecified site of lip, oral cavity, and pharynx; Z92.3 Personal history of irradiation; Z85.42 Personal history of malignant neoplasm of other parts of uterus; Z90.710 Acquired absence of both cervix and uterus; Z87.891 Personal history of nicotine dependence; Z82.3 Family history of stroke
CPT/HCPCS: 36415; 71045; 80048; 80053; 81001; 82803; 82962; 83605; 83690; 83735; 83880; 84439; 84443; 84481; 84484; 85025; 85610; 87040; 87086; 87205; 93005; 93010; 94640; 94660; 96365; 96367; 96375; 99291; J1644; J2920; J2930; J3475; J3490; J7620